=== PATIENT | male | born 1985 | race Two or more races ===

== ENCOUNTER 2019-02-10 17:07 | Emergency (ER) | payer BC, OTHER ==
[~2019-02-10] VITALS: Ht 175.3 cm; Wt 95.3 kg
[2019-02-10 21:30] VITALS: BP 125/80
[2019-02-10] MEDS ORDERED: ALPRAZolam 0.5 MG TAB PO ONE (21:30)
== END 2019-02-10 23:04 | disposition home or self-care (01) ==
LOC: ER 17:13
DX: F41.9 Anxiety disorder, unspecified (principal); F43.9 Reaction to severe stress, unspecified